=== PATIENT | female | born 1955 ===

== ENCOUNTER 2023-10-10 06:00 | Outpatient (CLI) | payer OTHER, SELFPAY | END 2023-10-10 06:01 | disposition home or self-care (01) | LOC: SPT 10-13 12:20 | PROVIDERS: Visit Provider Specialist | DX: Z46.89 Encounter for fitting and adjustment of other specified devices (principal); S52.502S Unspecified fracture of the lower end of left radius, sequela; X58.XXXS Exposure to other specified factors, sequela | CPT/HCPCS: 25600; 99204; L3982 ==

== ENCOUNTER → 2023-10-10 10:31 | Outpatient (BNVA) | payer OTHER, SELFPAY | PROVIDERS: Referring Provider Nurse Practitioner Family; Visit Provider Specialist | DX: S52.592A Other fractures of lower end of left radius, initial encounter for closed fracture (principal); X58.XXXA Exposure to other specified factors, initial encounter; M18.9 Osteoarthritis of first carpometacarpal joint, unspecified | CPT/HCPCS: 73110 ==

== ENCOUNTER → 2023-10-29 15:42 | Outpatient (BNVA) | payer OTHER, SELFPAY | PROVIDERS: Visit Provider Specialist | DX: S52.552D Other extraarticular fracture of lower end of left radius, subsequent encounter for closed fracture with routine healing (principal); X58.XXXD Exposure to other specified factors, subsequent encounter | CPT/HCPCS: 73110; 99024 ==